=== PATIENT | female | born 2000 | race Caucasian/White ===

== ENCOUNTER → 2021-12-01 14:22 | Outpatient (CLI) | payer OTHER, SELFPAY ==
--- NOTE | 2021-12-01 | DI.US.S_ITS ---
PROCEDURE: US PELVIC COMPLETE INDICATIONS: RIGHT PELVIC PAIN TECHNIQUE: Real-time scanning was performed of the pelvic organs, with image documentation. Additional endovaginal scanning was necessary due to incomplete visualization of the adnexal and endometrial structures by transabdominal scanning. COMPARISON: [facility], US, US PELVIC COMPLETE, 09/01/2021, 13:48. FINDINGS: Uterus: Uterus is anteverted and normal in size at 6.1 x 3.6 x 5.0 cm. The myometrium is homogeneous. The endometrium measures 2.4 mm combined thickness. Intrauterine device noted in place Ovaries: Right and left ovaries measure 2.6 x 1.9 x 3.6 cm and 4.2 x 2.5 x 2.2 cm respectively. Both ovaries have appropriate size, echotexture and vascularity without evidence of torsion or adnexal mass. Simple left ovarian cyst measures 2.0 x 1.6 x 1.5 cm Other: No pathologic free abdominal or pelvic fluid. IMPRESSION: Intrauterine device in good position. Otherwise unremarkable ultrasound the pelvis Approved by: Abel Butler M.D. on 12/01/2021 at 18:39
== END ==
PROVIDERS: PCP Family Medicine; Referring Provider Obstetrics & Gynecology; Visit Provider Obstetrics & Gynecology
DX: Z30.431 Encounter for routine checking of intrauterine contraceptive device (principal); R10.2 Pelvic and perineal pain
CPT/HCPCS: 76830; 76856